=== PATIENT | female | born 1985 | race African-American/Black ===

== ENCOUNTER 2017-02-13 07:54 | Emergency (ER) | payer OTHER ==
[~2017-02-13] VITALS: Ht 167.6 cm; Wt 54.4 kg
[2017-02-13] MEDS ORDERED: TRAMADOL 50 MG50 MG PO (09:20)
[2017-02-13] MEDS ORDERED: NAPROSYN500 MG PO (09:20)
[2017-02-13] MEDS ORDERED: CLEOCIN HCL150 MG PO (09:20)
[2017-02-13 09:32] VITALS: BP 131/87
== END 2017-02-13 09:33 | disposition home or self-care (01) ==
LOC: ER 07:54
DX: K04.7 Periapical abscess without sinus (principal); F17.210 Nicotine dependence, cigarettes, uncomplicated